=== PATIENT | female | born 1970 | race Caucasian/White ===

== ENCOUNTER 2017-05-27 07:34 | Day surgery (SDC) | payer OTHER ==
--- NOTE | 2017-05-26 17:15 | PDHPUP ---
History & Physical Update H&P update statement: This history and physical update is based on an assessment of the patient which was completed after admission or registration (within 24 hours), but prior to the surgery/procedure. H&P update: H&P reviewed & patient examined
[2017-05-27] MEDS ORDERED: BACITRACIN ZINC 14.2 GM OINTTUBE TP ONE (08:22)
[2017-05-27] MEDS ORDERED: LIDO/EPI 1% **for epidural** 30 ML SDV ONE (08:23)
[2017-05-27] MEDS ORDERED: OXYMETAZOLINE 30 ML NASAL SPRAY ONE (08:23)
[2017-05-27] MEDS ORDERED: LIDOCAINE 1% 300 MG/30 ML SDV ONE (08:24)
--- NOTE | 2017-05-27 08:30 | PDANEPAE ---
ANE History of Present Illness 47 yo female with nasal issues for SMRIT and septal button. ANE Past Medical History - Cardiovascular History Hx Hypertension: No Hx Arrhythmias: No Hx Chest Pain: No Hx Coronary Artery / Peripheral Vascular Disease: No Hx CHF / Valvular Disease: No Hx Palpitations: No - Pulmonary History Hx COPD: No Hx Asthma/Reactive Airway Disease: No Hx Recent Upper Respiratory Infection: No Hx Oxygen in Use at Home: No Hx Sleep Apnea: Yes Sleep Apnea Screening Result - Last Documented: Positive Pulmonary History Comment: MAKAYLA- cannot tolerate CPAP now w/sinus issues. - Neurologic History Hx Cerebrovascular Accident: No Hx Seizures: No Hx Dementia: No - Endocrine History Hx Diabetes: No Hypothyroid: No Obesity: severe - Renal History Hx Renal Disorders: No - Liver History Hx Hepatic Disorders: No - Neurological & Psychiatric Hx Hx Neurological and Psychiatric Disorders: No Neurological / Psychiatric History Comment: occ low back "hurts" due to stress - Cancer History Hx Cancer: No - Congenital Disorder History Hx Congenital Disorders: No - GI History GERD: no Hx Gastrointestinal Disorders: No - Other Health History Other Health History: hypertrophy of nasal turbinates- hole in septum from sinus infection;. sleep problems - Chronic Pain History Chronic Pain: No - Surgical History Prior Surgeries: wisdom teeth extraction. total hysterectomy 2009 ANE Review of Systems Review of Systems: - Exercise capacity METS (RN): 4 METS - Systems Constitutional: Reports: no symptoms Cardiac: Reports: no symptoms Respiratory: Reports: no symptoms ANE Patient History - Allergies Allergies/Adverse Reactions: Penicillins Allergy (Verified 05/27/17 08:11) Hives Sulfa (Sulfonamide Antibiotics) Allergy (Verified 05/27/17 08:11) Hives - Home Medications Home Medications: Gabapentin 05/26/17 [Last Taken 05/26/17] Lunesta 05/26/17 [Last Taken Unknown] Tylenol Arthritis 05/26/17 [Last Taken 05/26/17] - NPO status NPO Since - Liquids (Date): 05/27/17 NPO Since - Liquids (Time): 02:00 NPO Since - Solids (Date): 05/26/17 NPO Since - Solids (Time): 18:30 - Anes Hx Anes Hx: post operative nausea and vomiting - Smoking Hx Smoking Status: Never smoked Marijuana use: No - Alcohol Use Alcohol Use: Rarely - Family Anes Hx Family Hx Anesthesia Complications: mother had N/V; migraines ANE Labs/Vital Signs - Vital Signs Blood Pressure: 123/73 Heart Rate: 62 Respiratory Rate: 16 O2 Sat (%): 92 Height: 156.21 cm Weight: 99.79 kg ANE Physical Exam - Airway Neck exam: FROM Mallampati Score: Class 2 - Pulmonary Pulmonary: clear to auscultation - Cardiovascular Cardiovascular: regular rate and rhythym ANE Anesthesia Plan Anesthesia Plan: general endotracheal anesthesia
[2017-05-27] MEDS ORDERED: PROPOFOL/EMULSION 500 MG/50 ML BOTTLE IV ONE ×2 (08:59)
[2017-05-27] MEDS ORDERED: ROCURONIUM 100 MG/10 ML VIAL ONE (08:59)
[2017-05-27] MEDS ORDERED: LIDOCAINE 2% 5 ML SDV ONE (08:59)
[2017-05-27] MEDS ORDERED: DEXAMETHASONE 4 MG/ML VIAL ONE (08:59)
[2017-05-27] MEDS ORDERED: fentaNYL 100 MCG/2 ML INJ ONE ×2 (09:00→10:56)
[2017-05-27] MEDS ORDERED: ONDANSETRON 4 MG/2 ML VIAL ONE (09:27)
[2017-05-27] MEDS ORDERED: NALOXONE HCL 0.4 MG/ML INJ IVP PRN ×2 (09:36→09:37)
[2017-05-27] MEDS ORDERED: PROMETHAZINE HCL 25 MG/ML INJ IVP PRN (09:36)
[2017-05-27] MEDS ORDERED: HYDROCODONE/APAP 5/325 TAB PO PRN (09:36)
[2017-05-27] MEDS ORDERED: LR 500 ML IV PRN (09:36)
[2017-05-27] MEDS ORDERED: ALBUTEROL 3 ML DEYVIAL IH PRN (09:36)
[2017-05-27] MEDS ORDERED: ACETAMINOPHEN 500 MG TAB PO PRN (09:36)
[2017-05-27] MEDS ORDERED: SUGAMMADEX SODIUM 200 MG/2 ML VIAL IVP ONE ×2 (09:40→09:41)
--- NOTE | 2017-05-27 09:51 | POSTOPPROG ---
Post Op Note Date of Operation: 05/27/17 Surgeon: Ras Burdick Anesthesiologist: Dianne Anesthesia: GET(General Endotracheal) Pre-op Diagnosis: turb hypertrophy, septal perforartion Post-op Diagnosis: same Procedure: smrit/ insertion of septal button Inf/Abcess present in the surg proc area at time of surgery?: No Depth: Superfical (Skin SQ) EBL: Minimal Total fluids administered: 1000 Complications: none Specimen(s): none
--- NOTE | 2017-05-27 10:05 | POSTANESTH ---
Post Anesthetic Evaluation Cardiovascular Status: Normal, Stable Respiratory Status: Normal, Stable Level of Consciousness/Mental Status: Can Participate in Eval, Mildly Sleepy, Arousable Pain Control: Adequate, Prn Tx Ordered Nausea/Vomiting Control: Adequate, Prn Tx Ordered Complications Possibly Related to Anesthesia: None Noted
[2017-05-27] MEDS: fentaNYL 100 MCG/2 ML INJ IVP PRN ×2 (10:57→11:16)
[2017-05-27 11:10] VITALS: TEMP 98.4
[2017-05-27 12:03] VITALS: PULSE 78
[2017-05-27] MEDS ORDERED: ACETAMINOPHEN 500 MG TAB ONE (12:26)
[2017-05-27 12:46] VITALS: BP 152/92; RESP 14; O2SAT 90
--- NOTE | 2017-05-27 14:08 | GOP ---
[f rep st] OPERATIVE REPORT DATE OF OPERATION: 05/27/2017 SURGEON: Sylvester Burdick MD ANESTHESIA: General endotracheal. PREOPERATIVE DIAGNOSIS: Nasal congestion secondary to turbinate hypertrophy as well as nasal septal perforation. POSTOPERATIVE DIAGNOSIS: Nasal congestion secondary to turbinate hypertrophy as well as nasal septal perforation. PROCEDURE PERFORMED: FINDINGS: 1. Inferior turbinate hypertrophy treated by submucosal resection of the inferior turbinates with in ferior turbinate outfracture and partial resection of the medial and inferior margin of the turbinate tissue. 2. Nasal septal perforation treated by insertion of septal button. ESTIMATED BLOOD LOSS: 50 mL. DESCRIPTION OF PROCEDURE: The patient was placed on the operating table in the supine position. Afte r induction of adequate general endotracheal anesthesia, pledgets soaked in 0.5% Jasmeet-Synephrine were inserted into the right and left side of the nose. In addition, the soft tissues overlying the inferi or turbinates were infiltrated with this agent as well. While these agents were acting, sterile prep and drape was completed. At this point the pledges were withdrawn from the nose. The right inferior t urbinate was [id number] utilizing 1% lidocaine with 1:100,000 parts of epinephrine. The Xomed polyp shaver, utilizing a 2 mm blade, was used to perform submucosal resection of the infer ior turbinate. Initially a stab incision was created along its anterior aspect. Then the elevator por tion of the turbinate blade was used to elevate the soft tissues off the underlying turbinate bone. N umerous passes were then made in the long axis of the turbinate using the 2 mm turbinate blade to red uce its submucosal mass. Once it had been significantly reduced, it was noted to be somewhat hypertro phic and a small portion of its medial and inferior margin was transected with curved scissors. The r esidual turbinate tissue was outfractured. The cut margin of the turbinate was then treated with the suction Bovie electrocautery. An identical procedure was then performed on the left. First submucosal resection of the inferior tur binate was performed. A portion of the turbinate tissue along its medial and inferior margin was then transected using curved scissors. At this point, the residual turbinate tissue was outfractured foll owing cauterization of the cut margin of the turbinate. At this point, attention was directed to the anterior septal perforation. A septal button was then cu t to an appropriate size and inserted into this septal perforation without difficulty. The septal but ton was manipulated so that its fit would be comfortable. At this point, rolled Telfa was inserted in to the right and left side of the nose to act as nasal packing. The patient was then awakened, transf erred to the post anesthesia recovery area in stable condition. PROCEDURE PLANNED AND PERFORMED: Submucosal resection of the inferior turbinates with inferior turbi mary outfracture and insertion of septal button. FLUID REPLACEMENT: 500 mL. COMPLICATIONS: None. /[id number]/MODL
== END 2017-05-27 15:23 | disposition home or self-care (01) ==
LOC: FSGY 07:34
PROVIDERS: ATTEND Otolaryngology
PROC: 09BL7ZZ Excision of Nasal Turbinate, Via Natural or Artificial Opening (ICD-10-PCS; principal; 2017-05-27 09:00)
PROC: 09U Ear, Nose, Sinus, Supplement (ICD-10-PCS; principal; 2017-05-27 09:00)
DX: J34.3 Hypertrophy of nasal turbinates (principal); Q21.1 Atrial septal defect; G47.33 Obstructive sleep apnea (adult) (pediatric); E66.9 Obesity, unspecified; Z68.42 Body mass index [BMI] 45.0-49.9, adult; Z88.0 Allergy status to penicillin; Z88.2 Allergy status to sulfonamides
CPT/HCPCS: J0171; J1100; J2405; J2704; J3010